=== PATIENT | female | born 1955 | race Caucasian/White ===

== ENCOUNTER 2017-12-04 11:14 | Inpatient (IN) | payer BC ==
[~2017-12-04] VITALS: Ht 152.4 cm; Wt 85.8 kg
[2017-12-04 11:22] VITALS: Ht 152.4 cm; Wt 85.8 kg
[2017-12-04 12:28] LABS: BASOPHIL % 1.5 % (0-2); PLATELET COUNT 377 x10^3mcL (130-400); RED CELL DISTRIBUTION WIDTH 13.5 % (11.5-14.5)
[2017-12-04 12:34] LABS: CALCIUM 9.4 mg/dL (8.5-10.1); CARBON DIOXIDE 30.1 mmol/L (21-32); CHLORIDE SERUM 113 mmol/L (98-107); CREATININE SERUM 0.9 mg/dL (0.6-1.0); GFR1 > 60 mL/min; GLUCOSE SERUM 147 mg/dL (74-106); POTASSIUM SERUM 4.2 mmol/L (3.5-5.1); SODIUM SERUM 140 mmol/L (136-145)
[2017-12-04 12:35] LABS: microscopic required? NO
[2017-12-04 12:40] LABS: ALBUMIN 3.8 g/dL (3.4-5.0); ALKALINE PHOSPHATASE 98 U/L (46-116); ALT/SGPT 13 U/L (14-59); AST/SGOT 19 U/L (15-37); BILIRUBIN TOTAL 0.3 mg/dL (0.20-1.00); LIPASE 232 IU/L (73-393)
[2017-12-04 12:41] LABS: TOTAL PROTEIN, SERUM 8.4 g/dL (6.4-8.2)
[2017-12-04 13:14] LABS: UA SPECIFIC GRAVITY <=1.005 (1.005-1.035); urine erythrocyte NEGATIVE (NEGATIVE)
[2017-12-04] MEDS ORDERED: GLU5XL PO (14:46)
[2017-12-04] MEDS ORDERED: HCTZ/LISINOPRIL1 TA1 PO (14:48)
[2017-12-04] MEDS ORDERED: GLUCOPHAGE1000 MG PO (14:49)
[2017-12-04] MEDS ORDERED: SIMVASTATIN40 M1 PO (14:49)
[2017-12-04] MEDS ORDERED: NORTRIPTYLINE H25 M1 PO (14:50)
[2017-12-04 14:52] LABS: MAGNESIUM 2.2 mg/dL (1.8-2.4)
[2017-12-04 14:57] LABS: CHOLESTEROL/HDL RATIO 7.2
[2017-12-04 15:06] LABS: FREE T4 0.88 ng/dL (0.76-1.46); FREE THYROXINE INDEX 2.1 ug/dL (1.4-4.5); T4(THYROXINE) 7.4 ug/dL (4.7-13.3)
[2017-12-04 15:39] LABS: T3 TOTAL 1.35 ng/mL
[2017-12-04 17:35] LABS: IRON 97 ug/dL (50-170); TOTAL IRON BINDING CAPACITY 321 ug/dL (250-450)
[2017-12-04 17:49] LABS: RED BLOOD CELLS 3.9 M/mm3 (4.10-5.10)
[2017-12-04 19:00] VITALS: BP 133/46
[2017-12-04 22:18] VITALS: BP 125/64
[2017-12-05 06:12] VITALS: BP 103/47
[2017-12-05 06:28] LABS: PLATELET COUNT 299 x10^3mcL (130-400); RED CELL DISTRIBUTION WIDTH 13.6 % (11.5-14.5)
[2017-12-05 06:35] LABS: CALCIUM 8.4 mg/dL (8.5-10.1); CARBON DIOXIDE 25.7 mmol/L (21-32); CREATININE SERUM 1.2 mg/dL (0.6-1.0); MAGNESIUM 2.1 mg/dL (1.8-2.4); PHOSPHOROUS 4.7 mg/dL (2.5-4.9); POTASSIUM SERUM 4.6 mmol/L (3.5-5.1)
[2017-12-05 07:30] VITALS: BP 105/53
[2017-12-05 07:47] LABS: BAND NEUTROPHIL 3 % (0-10); MONOCYTE 3 % (0-7); SEGMENTED NEUTROPHILS 87 % (37-75); rbc morphology (normal/abnorm) NORMAL (NORMAL)
[2017-12-05 14:10] VITALS: BP 119/57
[2017-12-05 17:18] VITALS: BP 114/50
[2017-12-05 21:30] VITALS: BP 106/51
[2017-12-06 05:39] VITALS: BP 108/54
[2017-12-06 07:15] LABS: BASOPHIL % 1.4 % (0-2); PLATELET COUNT 267 x10^3mcL (130-400); RED CELL DISTRIBUTION WIDTH 13.8 % (11.5-14.5)
[2017-12-06 09:39] LABS: CALCIUM 8.6 mg/dL (8.5-10.1); CARBON DIOXIDE 23.7 mmol/L (21-32); CREATININE SERUM 1.1 mg/dL (0.6-1.0); MAGNESIUM 2.4 mg/dL (1.8-2.4); PHOSPHOROUS 4.1 mg/dL (2.5-4.9); POTASSIUM SERUM 4.3 mmol/L (3.5-5.1)
[2017-12-06 09:43] VITALS: BP 106/47
[2017-12-06 17:46] VITALS: BP 147/53
[2017-12-06 21:01] VITALS: BP 149/68
[2017-12-07 05:41] VITALS: BP 127/66
[2017-12-07 05:58] LABS: CALCIUM 8.8 mg/dL (8.5-10.1); CARBON DIOXIDE 27.7 mmol/L (21-32); MAGNESIUM 2.1 mg/dL (1.8-2.4); PHOSPHOROUS 4.7 mg/dL (2.5-4.9); POTASSIUM SERUM 4.4 mmol/L (3.5-5.1)
[2017-12-07 06:01] LABS: BASOPHIL % 0.5 % (0-2); PLATELET COUNT 319 x10^3mcL (130-400); RED CELL DISTRIBUTION WIDTH 13.3 % (11.5-14.5)
[2017-12-07 06:04] LABS: CHOLESTEROL/HDL RATIO 5.7
[2017-12-07 08:16] VITALS: BP 143/63
[2017-12-07] MEDS ORDERED: MOT800 PO (11:18)
[2017-12-07] MEDS ORDERED: ACETAMINOPHEN-H1 TA1 PO (11:18)
[2017-12-07] MEDS ORDERED: COL100 PO (11:19)
[2017-12-07] MEDS ORDERED: SIMETHICONE80 MG CH (11:19)
[2017-12-07] MEDS ORDERED: LEVAQUIN750 MG PO (11:20)
[2017-12-07] MEDS ORDERED: FLA500 PO (11:22)
[2017-12-07 11:36] VITALS: BP 143/63
== END 2017-12-07 14:40 | disposition home or self-care (01) | DRG 338 ==
LOC: ED 11:14 → DU 13:44 → MU 12-05 10:00
PROVIDERS: Emergency Medicine; Family Medicine; Surgery
PROC: 0DTJ0ZZ Resection of Appendix, Open Approach (ICD-10-PCS; principal; 2017-12-04 15:30)
DX: K35.2 Acute appendicitis with generalized peritonitis (principal); N17.0 Acute kidney failure with tubular necrosis; I10 Essential (primary) hypertension; E66.9 Obesity, unspecified; E78.5 Hyperlipidemia, unspecified; G43.909 Migraine, unspecified, not intractable, without status migrainosus; E11.65 Type 2 diabetes mellitus with hyperglycemia; D64.9 Anemia, unspecified; E02 Subclinical iodine-deficiency hypothyroidism; E83.51 Hypocalcemia; Z90.49 Acquired absence of other specified parts of digestive tract; Z79.84 Long term (current) use of oral hypoglycemic drugs; Z79.899 Other long term (current) drug therapy; Z68.36 Body mass index [BMI] 36.0-36.9, adult
CPT/HCPCS: 82962; 83880; 84439; 97110-GP; 97116-GP; J0690; J1644; J1885; J2250; J2405; J2543; J3010; J3490; J7030; Q0092